=== PATIENT | female | born 1990 | race Caucasian/White ===

== ENCOUNTER 2017-11-09 21:11 | Emergency (ER) | payer MEDICAID, SELFPAY ==
[2017-11-09 21:12] VITALS: BP 119/79; PULSE 143; RESP 18; TEMP 37.3; O2SAT 93; BMI 23.8
--- NOTE | 2017-11-09 22:21 | ED.VISSUMM ---
- ER Visit Summary Date of Service: 11/09/17 Chief Complaint: [] Runny nose cough fever children with same History of Present Illness: The patient is a 26 F [] mother is here with 2 of her children all 3 of them today developed body aches fever and cough she brought her children one be checked she has no past history she indicates her's and daughter were sick earlier in the week with similar symptoms. She has no past history she is eating drinking without difficulty normal bowel bladder habits harsh cough runny nose no flu vaccination no other complaints, again she really came in so that her 2 children could get checked not herself Physical Examination: [] She is in no distress she has a runny nose and a cough her oral cavity is unremarkable her lungs are clear heart tones are about 110 which was 99 her neck is supple her lungs are clear heart tones are as above the abdomen soft nontender upper lower extremities unremarkable clinically she looks well except for the cough very minor now Test Results: [] Emergency Department Course and Treatment: [] Explained to the mother that this time this is likely related to influenza type illness as we are in the peak of that epidemic, we will be screening the children and there is really no reason to screen her she agrees she will be given an aerosol discharge with the same Motrin Tylenol for body ache follow-up family doctor Treatment Plan: [] Disposition: [] Stable Impression: [] URI with harsh cough influenza type illness This note was generated with [employer] dictation software. It may contain incorrect words, spelling, and punctuation that were not noted in review of the chart prior to signing ED Disposition - Plan for ED Patient: Chief Complaint: Cold Sx Referrals: Care Physician,No Primary [Primary Care Provider] -
--- NOTE | 2017-11-09 22:23 | ED.DEP ---
ED Disposition - Plan for ED Patient: Chief Complaint: Cold Sx Instructions: ED Flu Prescriptions: Albuterol Inhaler [Ventolin Hfa] 1 - 2 puff INHALATION Q4H PRN PRN #1 inhaler PRN Reason: Wheezing Referrals: Care Physician,No Primary [Primary Care Provider] - Tim Burroughs DO [STAFF PHYSICIAN] -
[2017-11-09] MEDS: Ipratropium/Albuterol Sulfate 3 ML AMPUL.NEB INHALATION (22:51)
[2017-11-09 22:55] VITALS: PULSE 136; RESP 14
[2017-11-10 00:08] VITALS: BP 132/70; PULSE 108; RESP 14; O2SAT 99
== END 2017-11-10 00:08 | disposition home or self-care (01) ==
PROVIDERS: Emergency Provider Emergency Medicine
DX: J11.1 Influenza due to unidentified influenza virus with other respiratory manifestations (principal)
CPT/HCPCS: 94640; 99282

== ENCOUNTER 2018-07-23 13:20 | Emergency (ER) | payer MEDICAID, SELFPAY ==
[2018-07-23 13:20] VITALS: BP 116/78; PULSE 86; RESP 14; TEMP 37.7; O2SAT 98; BMI 24.8
--- NOTE | 2018-07-23 16:17 | EKG12_ITS ---
Test Reason : HEADACHE Blood Pressure : / mmHG Vent. Rate : 076 BPM Atrial Rate : 076 BPM P-R Int : 144 ms QRS Dur : 080 ms QT Int : 376 ms P-R-T Axes : 057 075 061 degrees QTc Int : 423 ms Normal sinus rhythm Normal ECG Confirmed by TANJA MG, ANGELLA ([id number]), web content editor LEONA LO ([id number]) on 07/28/2018 3:41:51 PM Referred By: TRAY Confirmed By:ANGELLA AGRAWAL MD
--- NOTE | 2018-07-23 16:19 | CT_ITS ---
STUDY: CT BRAIN WITHOUT CONTRAST REASON FOR EXAM: Female, 27 years old. Headache x2 weeks. RADIATION DOSAGE (If Supplied By Facility): CTDIvol = ( 60.81 ) mGy, DLP = ( 1067.08 ) mGycm TECHNIQUE: Transaxial CT imaging of the brain was performed without administration of intravenous contrast material. Individualized dose optimization techniques were used for this CT. COMPARISON: 05/19/2015. FINDINGS: Normal soft tissue structures. Normal calvarium. Normal size ventricles and extra-axial spaces for the patient's age. Normal white matter tracts of the cerebral hemispheres. Normal basal ganglia and thalami. Normal brainstem. Normal cerebellum. There is no intracranial hemorrhage. There are no findings of an acute ischemic infarction. Normal visualized paranasal sinuses. CT/Brain/Head without Contrast IMPRESSION: Normal unenhanced CT scan of the brain. Electronically Signed: Alyssia Holloway MD at 17:40 EDT Tel , Service support ,
--- NOTE | 2018-07-23 16:19 | ED.VISSUMM ---
- ER Visit Summary Date of Service: 07/23/18 Chief Complaint: Headache History of Present Illness: The patient is a 27 F who presents for headaches for the last 2-1/2 weeks. Patient is having intermittent headaches that start behind her eyes and encompassing entire head, like a sharp achiness, and last approximately 1 hour. She has 2-3 episodes a day. She has associated nausea, blurred vision, bilateral ear pain with ringing, shakiness, tingling in her hands, and heart racing. Patient has also been having increased urination. Last menstrual period was 2 months ago. She did have a bilateral tubal ligation. Use her grandfathers blood glucose monitor and checked at one time, with glucose 84. She denies any medical history, including histories of headaches. She is not currently on any medications and is not had any medication changes within the last month. She smokes tobacco. She denies any drug use prior to the headache starting. Physical Examination: Vital signs: afebrile, hemodynamically stable, no hypoxia on room air General: well nourished, well developed, in no distress, sitting in bed with the lights on Skin: warm, dry, no rash, no pallor HEENT: normocephalic and atraumatic; PERRL, EOMI, no nystagmus, vision grossly normal, moist mucous membranes Cardiovascular: regular rate and rhythm without murmurs, no peripheral edema, 2+ pulses all distal extremities Respiratory: No increased work of breathing, lungs are clear to auscultation bilaterally, no rales, rhonchi or wheezing Abdominal: Abdomen is soft, nontender with normoactive bowel sounds, no guarding or rebound, no masses MSK: Moves all extremities, no deformities, normal strength Neuro: Awake and alert, oriented ?4. No facial droop, sensation and motor function intact and symmetric Test Results: E Abnormal Lab Results 07/23/18 07/23/18 07/23/18 16:45 16:45 16:45 WBC 8.4 RBC 4.56 Hgb 12.6 Hct 37.5 MCV 82.2 MCH 27.6 MCHC 33.6 RDW 13.0 RDW Differential 38.6 Plt Count 293 MPV 10.4 Immature Gran % (Auto) 0.100 Neut % (Auto) 60.1 Lymph % (Auto) 31.5 [place] % (Auto) 6.7 Eos % (Auto) 1.4 Baso % (Auto) 0.2 Absolute Neuts (auto) 5.0 Absolute Lymphs (auto) 2.63 Total Counted Not Reportable Sodium 137 Potassium 3.5 Chloride 106 Carbon Dioxide 27.0 Anion Gap 4 L BUN 10 Creatinine 0.77 Estim Creat Clear Calc 86.80 Est GFR (MDRD) Af Amer 115 Est GFR (MDRD) Non-Af 95 BUN/Creatinine Ratio 13.0 Glucose 87 Calcium 8.7 Total Bilirubin 1.50 H AST 15 ALT 32 Alkaline Phosphatase 84 Total Protein 7.9 Albumin 3.8 Globulin 4.1 Albumin/Globulin Ratio 0.9 TSH 0.74 Free T4 1.04 Urine Color Urine Clarity Urine pH Ur Specific Coleman Urine Protein Urine Glucose (UA) Urine Ketones Urine Occult Blood Urine Nitrite Urine Bilirubin Urine Urobilinogen Ur Leukocyte Esterase Urine RBC Urine WBC Ur Squamous Epith Cells Urine Bacteria Urine Mucus Urine Test Urine Opiates Screen Urine Methadone Screen Ur Barbiturates Screen Ur Phencyclidine Scrn Ur Amphetamines Screen U Methamphetamin-MDMA U Benzodiazepines Scrn Urine Cocaine Screen U Cannabinoids Screen Ur Drug Screen Comment Ethyl Alcohol < 3.0 07/23/18 07/23/18 07/23/18 16:45 16:45 16:45 WBC RBC Hgb Hct MCV MCH MCHC RDW RDW Differential Plt Count MPV Immature Gran % (Auto) Neut % (Auto) Lymph % (Auto) [place] % (Auto) Eos % (Auto) Baso % (Auto) Absolute Neuts (auto) Absolute Lymphs (auto) Total Counted Sodium Potassium Chloride Carbon Dioxide Anion Gap BUN Creatinine Estim Creat Clear Calc Est GFR (MDRD) Af Amer Est GFR (MDRD) Non-Af BUN/Creatinine Ratio Glucose Calcium Total Bilirubin AST ALT Alkaline Phosphatase Total Protein Albumin Globulin Albumin/Globulin Ratio TSH Free T4 Urine Color Yellow Urine Clarity Clear Urine pH 7.0 Ur Specific Coleman 1.005 Urine Protein Negative Urine Glucose (UA) Normal Urine Ketones Negative Urine Occult Blood Negative Urine Nitrite Negative Urine Bilirubin Negative Urine Urobilinogen Normal Ur Leukocyte Esterase Negative Urine RBC 0 SEEN Urine WBC 0 SEEN Ur Squamous Epith Cells 0-5 SEEN Urine Bacteria 0 SEEN Urine Mucus 0 SEEN Urine Test Negative Urine Opiates Screen NEGATIVE Urine Methadone Screen NEGATIVE Ur Barbiturates Screen NEGATIVE Ur Phencyclidine Scrn NEGATIVE Ur Amphetamines Screen NEGATIVE U Methamphetamin-MDMA NEGATIVE U Benzodiazepines Scrn NEGATIVE Urine Cocaine Screen NEGATIVE U Cannabinoids Screen NEGATIVE Ur Drug Screen Comment Ethyl Alcohol Clinical Impression(s) from Imaging Studies Brain CT 07/23/18 16:19 IMPRESSION: Normal unenhanced CT scan of the brain. Electronically Signed: Alyssia Holloway MD at 17:40 EDT Tel , Service support , Medications Given Discontinued Medications Sodium Chloride () 1,000 mls @ 1,000 mls/hr IV .Q1H ONE Stop: 07/23/18 17:16 Last Admin: 07/23/18 16:45 Dose: 1,000 mls/hr mergency Department Course and Treatment: Treatment Plan: Patient presents with a constellation of symptoms occurring with headaches that sound similar to an anxiety reaction, hyperventilation, possible thyroid dysfunction, electrolyte derangements, or other causes. Her headache is intermittent and sounds less likely to be a primary intracranial process. CT the head showed no acute process. Urine was negative for infection and negative. TSH and free T4 within normal limits. Tox and alcohol were normal. CBC and CMP were unremarkable. Patient was given IV fluids for hydration. Her physical examination was unremarkable, and she had no findings on her workup to explain her symptoms. No concerning findings on exam that would require admission for further workup. Patient is going to follow-up with a family doctor for further evaluation and management of these episodic headaches with other symptoms continue. Patient was given a prescription for hydroxyzine in case there is an anxiety component to her symptoms. We discussed that there could be other underlying metabolic or other physiologic abnormalities that are causing these episodes, but they are beyond the scope of what can be tested in the emergency department. Patient agreed with this plan was discharged home very well-appearing with no focal neuro deficits. Disposition: [] Impression: Cephalgia, intermittent This note was generated with [employer] dictation software. It may contain incorrect words, spelling, and punctuation that were not noted in review of the chart prior to signing ED Disposition - Plan for ED Patient: Disposition: Home or Assisted Living Chief Complaint: Headache Instructions: ED Cephalgia Unspecified Prescriptions: RX: Hydroxyzine HCl 50 mg PO TID PRN #20 tab PRN Reason: anxiousness Referrals: Care Physician,No Primary [Primary Care Provider] - Doctor,Your [STAFF PHYSICIAN] - As soon as possible Additional Instructions: Your workup did not show any concerning findings to explain your headaches and associated symptoms. Your lab work was fine, including blood counts, electrolytes, and thyroid function. Your head CT showed no concerning findings. Your EKG was normal. Please follow-up with your primary care doctor as soon as possible for further workup of your intermittent headaches with other symptoms. You may also benefit from an eye doctor appointment. You may use the hydroxyzine as needed to see if it helps with your symptoms associated with your headaches. If you have any worsening of your condition or any new concerning symptoms, please return immediately to the emergency department for another evaluation.
[2018-07-23] MEDS: 0.9% Normal Saline 1,000 ML 1000 ML IV (16:45)
[2018-07-23 16:54] VITALS: BP 102/78; BP 103/73; BP 109/77; PULSE 67; PULSE 74
[2018-07-23 17:04] LABS: Bacteria 0 SEEN /hpf (None Seen); Mucous, Urine 0 SEEN /hpf (<or=2+); Red Blood Cells-Urine 0 SEEN /hpf (0-5); White Blood Cells 0 SEEN /hpf (0-5)
[2018-07-23 17:06] LABS: Color, Urine Yellow (Yellow); Glucose, Dipstick Normal (Normal); Ketone-Dipstick Negative (Negative); Leukocyte Esterase-Dipstick Negative /ul (Negative); Nitrite-Dipstick Negative (Negative); Occult Blood-Urine Negative /ul (Negative); Protein-Dipstick Negative (Negative); Specific Gravity, Urine 1.005 (1.002-1.030); Urine Bilirubin Dipstick Negative (Negative); Urine Clarity Clear (Clear); Urine Urobilinogen Normal (Normal)
[2018-07-23 17:11] LABS: Internal QC Validated? YES +Cl - CLEAR BKGD; Pregnancy, Urine Negative Negative
[2018-07-23 17:14] LABS: Squamous Epithelial Cells - UA 0-5 SEEN /hpf (5-10)
[2018-07-23 17:21] LABS: Alcohol, Blood (Medical)-Serum < 3.0 mg/dL
[2018-07-23 17:32] LABS: ALB/GLOB Ratio 0.9 RATIO (0.9-2.4); AST(SGOT) 15 U/L (15-37); Alanine Aminotransfer ALT/SGPT 32 U/L (13-56); Albumin, Serum 3.8 g/dL (3.2-5.0); Alkaline Phosphatase 84 U/L (45-117); Anion Gap 4 (5-15); BUN 10 mg/dL (7-18); Calcium,Total 8.7 mg/dL (8.5-10.1); Chloride 106 mmol/L (98-107); Creatinine, Serum 0.77 mg/dL (0.55-1.02); EST Glomerular Filtration Rate 95 mL/min (>60); Est Glom Filt Rate - Afr Amer 115 mL/min (>60); Globulin 4.1 g/dL (2.2-4.2); Glucose 87 mg/dL (74-106); Potassium 3.5 mmol/L (3.5-5.1); Protein, Total 7.9 g/dL (6.4-8.2); Sodium Level 137 mmol/L (136-145); T4 Free Direct 1.04 ng/dL (0.76-1.46); Thyroid Stim Hormone (TSH) 0.74 uIU/mL (0.358-3.74)
[2018-07-23 17:36] LABS: Absolute Lymphocyte Count 2.63 X10^3/ul (0.83-4.51); Basophil# 0.02 X10^3/uL; Basophil% 0.2 % (0-1); Eosinophil# 0.12 X10^3/uL; Eosinophils% 1.4 % (0-5); Hematocrit 37.5 % (37-47); Hemoglobin 12.6 g/dl (12.0-15.0); Lymphocyte # 2.63 X10^3/ul (4.0); Lymphocyte % 31.5 % (19-41); Mean Corp Hgb Conc 33.6 g/gl (32-36); Mean Corpuscular Hgb 27.6 pg (27.0-32.0); Mean Corpuscular Volume 82.2 fL (81-99); Mean Platelet Vol. 10.4 fl (6.2-12.0); Monocyte# 0.56 X10^3/uL; Monocyte% 6.7 % (0-10); Neutrophil # 5.02 X10^3/uL (2.7-7.7); Neutrophil % 60.1 % (47-70); Platelet Count 293 K/mm3 (150-450); RBC Distribution Width SD 38.6 fl (35.1-43.9); Red Blood Count 4.56 M/mm3 (4.2-5.4); White Blood Count 8.4 K/mm3 (4.4-11.0)
[2018-07-23 17:41] LABS: POSITIVE COUNT NO; POSITIVE DIFFERENTIAL NO; POSITIVE MORPHOLOGY NO
[2018-07-23 17:56] LABS: Amphetamine Urine VISTA NEGATIVE (<1000 ng/mL); Barbiturate Urine VISTA NEGATIVE (< 200 ng/mL); Benzodiazepine Urine VISTA NEGATIVE (< 200 ng/mL); Cocaine Urine VISTA NEGATIVE (< 300 ng/mL); Ecstacy Urine VISTA NEGATIVE (< 500 ng/mL); Methadone Urine VISTA NEGATIVE (< 300 ng/mL); PCP Urine VISTA NEGATIVE (< 25 ng/mL); THC Urine VISTA NEGATIVE (< 50 ng/mL); Vista UDS pH Range 6
--- NOTE | 2018-07-23 18:26 | ED.DEP ---
ED Disposition - Plan for ED Patient: Disposition: Home or Assisted Living Chief Complaint: Headache Instructions: ED Cephalgia Unspecified Prescriptions: Hydroxyzine HCl 50 mg PO TID PRN #20 tab PRN Reason: anxiousness Referrals: Care Physician,No Primary [Primary Care Provider] - Doctor,Your [STAFF PHYSICIAN] - As soon as possible Additional Instructions: Your workup did not show any concerning findings to explain your headaches and associated symptoms. Your lab work was fine, including blood counts, electrolytes, and thyroid function. Your head CT showed no concerning findings. Your EKG was normal. Please follow-up with your primary care doctor as soon as possible for further workup of your intermittent headaches with other symptoms. You may also benefit from an eye doctor appointment. You may use the hydroxyzine as needed to see if it helps with your symptoms associated with your headaches. If you have any worsening of your condition or any new concerning symptoms, please return immediately to the emergency department for another evaluation.
[2018-07-23 18:54] VITALS: PULSE 88; RESP 16
== END 2018-07-23 18:54 | disposition home or self-care (01) ==
PROVIDERS: Emergency Provider Emergency Medicine
DX: R51 Headache (principal); H92.03 Otalgia, bilateral; F17.210 Nicotine dependence, cigarettes, uncomplicated
CPT/HCPCS: 70450; 80053; 80307; 80320; 81001; 81025; 84439; 84443; 85025; 93005; 96360; 99284; J7030; G0480

== ENCOUNTER 2020-04-19 02:04 | Emergency (ER) | payer MEDICAID, SELFPAY ==
[2020-04-19 02:05] VITALS: BP 128/93; PULSE 105; RESP 16; TEMP 36.6; O2SAT 100; BMI 24.6
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
[2020-04-19 04:09] VITALS: BP 106/75; PULSE 89; RESP 18; O2SAT 95
== END 2020-04-19 04:10 | disposition home or self-care (01) ==
PROVIDERS: Emergency Provider Emergency Medicine
DX: S61.212A Laceration without foreign body of right middle finger without damage to nail, initial encounter (principal); M62.838 Other muscle spasm; Y04.0XXA Assault by unarmed brawl or fight, initial encounter; Y93.11 Activity, swimming; Y92.89 Other specified places as the place of occurrence of the external cause; Y99.9 Unspecified external cause status; F17.200 Nicotine dependence, unspecified, uncomplicated
CPT/HCPCS: 12001; 70160; 72040; 99284

== ENCOUNTER 2025-05-01 20:21 | Emergency (ER) | payer MEDICAID, SELFPAY ==
[2025-05-01 20:22] VITALS: BP 119/85; PULSE 105; RESP 20; TEMP 37.5; O2SAT 98; BMI 24.5
[2025-05-01 20:24] VITALS: BP 119/85; PULSE 105; RESP 22; TEMP 37.5; O2SAT 98
--- OUTSIDE RECORDS SUMMARY | 2025-05-01 20:46 | XMS RPT_ITS | CCD ---
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 In more severe cases, topical corticosteroids (steroids) may be recommended. Steroid creams and ointments are available in a variety of strengths (potencies); the least potent are available in the [place] without a prescription (eg, hydrocortisone 1 percent cream). More potent formulations require a prescription. Steroid treatments for contact dermatitis are most effective when applied and covered with a barrier, such as plastic wrap, a dressing (eg, Telfa), cotton gloves, or petroleum jelly. Oral steroids (eg, prednisone) may be used briefly to treat severe dermatitis, but are not recommended for long-term treatment of irritant contact dermatitis. ALLERGIC CONTACT DERMATITIS Allergic contact dermatitis occurs when the skin comes in direct contact with an allergen. This activates the body's immune system, which triggers inflammation. Allergic contact dermatitis can occur after being exposed to a new product or after using a product for months or years. Common allergens -- Poison niya, poison oak, and poison sumac contain an oil called urushiol, which is the most common cause of allergic contact dermatitis. Ginkgo fruit and the skin of mangos also contain urushiol and can cause allergic contact dermatitis. Other common allergens include nickel in jewelry, perfumes and cosmetics, components of rubber, nail nauruan, and chemicals in shoes (both leather and synthetic). Allergic contact dermatitis can also be triggered by certain medications, including hydrocortisone cream, antibiotic creams (eg, Neosporin , Bacitracin ), benzocaine, and thimerosal. Laundry detergents are an uncommon cause of allergic contact dermatitis. Symptoms -- Symptoms include intense itching and a red raised rash. The rash is usually limited to areas that were in direct contact with the allergen, but a rash can appear in other areas of the body, if the allergen was transferred to those areas on a person's hands. Washing the allergen away with soap and water can usually prevent this spread. The rash typically appears within 12 to 48 hours of exposure to the allergen, although in some cases it may not appear for up to two weeks. Less commonly, the rash persists for months or years, which makes it difficult to identify the cause of the reaction. Diagnosis -- The diagnosis of allergic contact dermatitis is based upon a person's history and physical examination. If symptoms improve after the allergen is eliminated, this supports the diagnosis. Patch testing may be recommended in some cases and is usually performed by a carton inspector or cryptographic center specialist. Treatment -- Allergic contact dermatitis usually resolves within two to four weeks after the allergen is eliminated, although it can take more time in some cases. Several measures can minimize symptoms during this time and help to control symptoms in people who have chronic allergic contact dermatitis. Whenever possible, identify and stop all exposure to the allergen. Oatmeal baths or soothing lotions such as calamine lotion can provide relief in mild cases. Topical antihistamines (eg, Benadryl cream) may be effective in some people. Topical corticosteroids (steroids) may be recommended for people with mild to moderate symptoms. Steroid creams and ointments are available in a variety of strengths (potencies); the least potent are available in the [place] without a prescription (eg, hydrocortisone 1 percent cream). More potent formulations require a prescription. For people with more bothersome symptoms, wet or damp dressings are recommended, especially when the affected area is oozing fluid and crusting. Such dressings are soothing and relieve itching, reduce redness, gently remove crusts, and prevent additional injury from scratching. A damp cotton garment (the garment is soaked with water and then wrung out) is worn over the affected area and covered with a dry garment. As an example, for an adult with allergic contact dermatitis of the legs, wet long underwear can be covered with larger dry long underwear. Adults may prefer to apply wet dressings at night. When used during the day, wet dressings should be changed every eight hours. Infants and toddlers with extensive skin involvement can wear wet pajamas covered by a dry pair of pajamas or a sleep sack. In people with severe dermatitis, a short course of oral steroids (eg, prednisone) may be recommended to get symptoms under control. LATEX DERMATITIS Latex is a fluid produced by rubber trees that is processed into a variety of products, including gloves, balloons, and condoms. In some individuals, exposure to these products and others (such as rubber bands, erasers, feeding nipples, pacifiers) can cause a contact dermatitis that is either an irritant or allergic reaction. Less commonly, a person can develop a potentially life-threatening allergic reaction to latex. Irritant dermatitis -- Irritant dermatitis usually occurs on the hands of people who wear latex or other rubber gloves; the latex acts as an irritant and the gloves trap moisture against the skin. The skin dries out when the gloves are removed, leading to the dermatitis. The symptoms of irritant rubber or latex dermatitis include redness and itching on the skin. There may also be dryness and cracking. Symptoms usually occur within 12 to 36 hours of touching a latex product. Treatment involves avoiding use of any latex-containing products. Latex allergy -- Latex can trigger allergic contact dermatitis. The skin reaction caused by a latex allergy does not differ significantly from that of irritant latex dermatitis. Other manifestations of latex allergy include urticaria (hives) immediately after contact with latex at the site of contact and a severe allergic reaction, which causes swelling, sneezing, and wheezing. Rarely, anaphylaxis can occur, which causes life-threatening difficulty with breathing. Diagnosis -- In most cases, the diagnosis of latex allergy is based upon a person's history of exposure. People with a severe latex allergy may immediately develop hives, nasal symptoms, swelling, or wheezing after latex exposure. These individuals may need to see a carton inspector or cryptographic center specialist for specialized skin patch tests and blood testing to verify the latex allergy. Treatment -- The primary treatment for latex allergy is to avoid all latex-containing products. Non-latex examination gloves are widely available, and use of glove liners may also be an effective approach. Natural membrane (sometimes called sheep skin) condoms may be used in place of latex condoms, and are effective for preventing . However, natural membrane condoms do not protect against sexually transmitted diseases such as HIV, gonorrhea, and chlamydia. People with a serious latex allergy should wear a bracelet, necklace, or similar alert tag at all times. If a reaction occurs and the person is too ill to explain their condition, this will help responders provide the proper care as quickly as possible. This measure is especially important in children. The alert tag should include a list of known allergies, as well as the name and phone number of an emergency contact. People with a latex allergy should inform their doctors, dentists, and other healthcare providers about their allergy. Some patients are advised to carry an anaphylaxis kit (containing epinephrine that can be injected under the skin) as a precautionary measure. documented in this encounter [facility] 03-25-2025 Note HNO ID: [id number] Author: LOLITA GOOD APRN.DOUG Service: ? Author Type: Nurse Practitioner Type: Progress Notes Filed: 03/25/2025 18:08 Note Text: Telemedicine Visit - Distance Health Virtual Visit Note Patient seen on [employer] Video Visit platform. Location of patient: [place] I have communicated my name and active licensure. The patient's identity and physical location were verified at the time of this visit. Either the patient or their legal indirect sales representative has been informed of the risks and benefits of -- and alternatives to -- treatment through a remote evaluation and consents to proceed with the evaluation remotely. History of Present Illness Denise Markham is a 34 year old female presenting with a rash. History was obtained from: patient The rash is located bilateral arms, bilateral thighs, bilateral hands for the past 2 week(s) and is not improving. The rash is described as itchy. The prior dermatologic history includes similar rash in past. The patient reports recent yard work and contact with plants. Complains of no other pertinent symptoms. Denies fever, shortness of breath, chest pain, abdominal pain. OTC meds/remedies that patient has tried Niya Dry, Benadryl, Calamine lotion - temporary relief; Patient denies current or . PAST MEDICAL HISTORY Diagnosis Date Dysthymic disorder Depression (non-psychotic) PAST SURGICAL HISTORY Procedure Laterality Date PAST SURGICAL HISTORY OF stitches in forehead TUBAL LIGATION FAMILY HISTORY Problem Relation Age of Onset Arthritis Maternal Grandmother Diabetes Maternal Grandmother Diabetes Paternal Grandmother Hypertension Paternal Grandmother Hypertension Paternal Grandfather Alcohol/Drug Paternal Grandfather Cancer Maternal Uncle LUNG CANCER Social History Tobacco Use Smoking status: Some Days Current packs/day: 0.00 Types: Cigarettes Start date: 11/23/2005 Last attempt to quit: 11/23/2010 Years since quittin.3 Smokeless tobacco: Never Substance Use Topics Alcohol use: Yes Comment: Occasionally Drug use: No ALLERGIES Allergen Reactions Bupropion Hcl Hives Peanuts Rash Tree Nuts Rash Wellbutrin [Bupropi* Hives FLUoxetine (PROZAC) 10 mg capsule Take 1 capsule by mouth once daily. hydrOXYzine pamoate (VISTARIL) 25 mg capsule Take 1 capsule by mouth three times a day as needed. Video Exam (Examination performed via Video enabled technology) General appearance: Alert, oriented, pleasant, in NAD: Yes Ill appearing: No Lethargic appearing: No Respiratory distress: No Skin: linear streaks of erythematous papules noted to bilateral anterior and posterior thighs; no drainage or streaking; Patient reports same rash to bilateral arms (due to poor video quality, not visualized); ASSESSMENT/PLAN: 1. Allergic contact dermatitis due to plants, except food - ICD9: 692.6, ICD10: L23.7 - Begin treatment with oral steroids - prednisone taper (advised on side effects of hunger and insomnia) - Triamcinolone ointment as directed -?Discussed skin care of rash?- keep clean and dry, avoid scratching - Recommend patient seek immediate medical evaluation if any worsening redness, swelling, fevers, streaking from area, additional symptoms -?Follow up?with PCP (or available in-person care) in 1 week?if symptoms persist or?sooner if symptoms?worsen - Red flags discussed for immediate in person care - All questions answered Lolita Good APRN.CHUCKING MACHINE SET UP OPERATOR TOOL Differential Diagnoses - contact dermatitis is more likely for the following reason(s): suggested by HANDP Disposition The patient was other (comment) (Zoom visit ended). [facility] 03-25-2025 History of Presen t illness Narrative Telemedicine Visit - Distance Health Virtual Visit Note Patient seen on [employer] Zoom Video Visit platform. Location of patient: [place] I have communicated my name and active licensure. The patient's identity and physical location were verified at the time of this visit. Either the patient or their legal indirect sales representative has been informed of the risks and benefits of -- and alternatives to -- treatment through a remote evaluation and consents to proceed with the evaluation remotely. History of Present Illness Denise Markham is a 34 year old female presenting with a rash. History was obtained from: patient The rash is located bilateral arms, bilateral thighs, bilateral hands for the past 2 week(s) and is not improving. The rash is described as itchy. The prior dermatologic history includes similar rash in past. The patient reports recent yard work and contact with plants. Complains of no other pertinent symptoms. Denies fever, shortness of breath, chest pain, abdominal pain. OTC meds/remedies that patient has tried Niya Dry, Benadryl, Calamine lotion - temporary relief; Patient denies current or . PAST MEDICAL HISTORY Diagnosis Date Dysthymic disorder Depression (non-psychotic) PAST SURGICAL HISTORY Procedure Laterality Date PAST SURGICAL HISTORY OF stitches in forehead TUBAL LIGATION FAMILY HISTORY Problem Relation Age of Onset Arthritis Maternal Grandmother Diabetes Maternal Grandmother Diabetes Paternal Grandmother Hypertension Paternal Grandmother Hypertension Paternal Grandfather Alcohol/Drug Paternal Grandfather Cancer Maternal Uncle LUNG CANCER Social History Tobacco Use Smoking status: Some Days Current packs/day: 0.00 Types: Cigarettes Start date: 11/23/2005 Last attempt to quit: 11/23/2010 Years since quittin.3 Smokeless tobacco: Never Substance Use Topics Alcohol use: Yes Comment: Occasionally Drug use: No ALLERGIES Allergen Reactions Bupropion Hcl Hives Peanuts Rash Tree Nuts Rash Wellbutrin [Bupropi* Hives FLUoxetine (PROZAC) 10 mg capsule Take 1 capsule by mouth once daily. hydrOXYzine pamoate (VISTARIL) 25 mg capsule Take 1 capsule by mouth three times a day as needed. Video Exam (Examination performed via Video enabled technology) General appearance: Alert, oriented, pleasant, in NAD: Yes Ill appearing: No Lethargic appearing: No Respiratory distress: No Skin: linear streaks of erythematous papules noted to bilateral anterior and posterior thighs; no drainage or streaking; Patient reports same rash to bilateral arms (due to poor video quality, not visualized); ASSESSMENT/PLAN: 1. Allergic contact dermatitis due to plants, except food - ICD9: 692.6, ICD10: L23.7 - Begin treatment with oral steroids - prednisone taper (advised on side effects of hunger and insomnia) - Triamcinolone ointment as directed -?Discussed skin care of rash?- keep clean and dry, avoid scratching - Recommend patient seek immediate medical evaluation if any worsening redness, swelling, fevers, streaking from area, additional symptoms -?Follow up?with PCP (or available in-person care) in 1 week?if symptoms persist or?sooner if symptoms?worsen - Red flags discussed for immediate in person care - All questions answered Lolita Good APRN.CNP Differential Diagnoses - contact dermatitis is more likely for the following reason(s): suggested by H&P Disposition The patient was other (comment) (Zoom visit ended). documented in this encounter [facility] 01-25-2025 Alva Boogie APRN.CNP - 01/25/2025 1:25 PM EDT Steve [facility] - [facility] [address] [place] [address] [facility] [address] [place] [address] [facility] [address] [place], [place] [address] [facility] [address] [place], [place] [id number] [facility] [place], [address] documented in this encounter [facility] 01-25-2025 Note HNO ID: [id number] Author: ALVA MANLEY APRN.DOUG Service: ? Author Type: Nurse Practitioner Type: Progress Notes Filed: 01/26/2025 17:19 Note Text: VIRTUAL PRIMARY CARE Patient seen on [employer] Video Visit platform. I have communicated my name and active licensure. The patient's identity and physical location were verified at the time of this visit. Either the patient or their legal indirect sales representative has been informed of the risks and benefits of -- and alternatives to -- treatment through a remote evaluation and consents to proceed with the evaluation remotely. Assessment AND Plan Mixed anxiety depressive disorder - Symptoms of anxiety and depression have worsened over the past few months, with recent onset of panic attacks characterized by tachycardia, dyspnea, and emotional dysregulation. - Completed AMPARO-7 and PHQ-9 assessments; AMPARO-7 indicates severe anxiety with daily symptoms, PHQ-9 indicates severe depression with daily symptoms including hypersomnia, fatigue, poor appetite, and thoughts of self-harm. - Discussed treatment options including SSRIs and non-controlled anxiolytics. - Start fluoxetine 10 mg - Hydroxyzine PRN for acute anxiety - BH resources provided in AVS. - Follow-up 4 weeks for med reassessment with me or psychiatry if established Orders: FLUoxetine (PROZAC) 10 mg capsule; Take 1 capsule by mouth once daily. hydrOXYzine pamoate (VISTARIL) 25 mg capsule; Take 1 capsule by mouth three times a day as needed. Encounter to establish care with new doctor - [facility]: Appointment line [phone], Internal Medicine desk [phone] Orders: ESTABLISH WITH PRIMARY CARE - NEW PATIENT; Future She is agreeable with plan of care. Alva Manley APRN.CHUCKING MACHINE SET UP OPERATOR TOOL CC: Denise is a 34-year-old female with a history of depression, presenting for worsening anxiety and new onset panic attacks. SUBJECTIVE: History of post- depression. Anxiety more of an issue. Anxiety in the last couple of months. Panic attacks in the last 2-3 weeks, no clear trigger. She is overwhelmed and stressed but nothing traumatic or changes. Heart racing, can't breath, irritable. Has four kids. 8, 12, 13 and 15. Medications in the past: - tried depression medication. - Hives with Wellbutrin, several years ago. No other medications. Self-employed as a house and commercial painter. All other ROS negative. Chart Review: problem list, medical/surgical/family/social history, medications, and allergies OBJECTIVE: Constitutional: General: No acute distress. Appearance: Well-developed. HENT: Head: Normocephalic. Eyes: Conjunctiva/sclera: Conjunctivae normal. Pulmonary: Effort: Pulmonary effort is normal. No respiratory distress. Skin: Coloration: Skin is not pale. Findings: No erythema or rash. Neurological: Mental Status: Alert [facility] 01-25-2025 History of Presen t illness Narrative VIRTUAL PRIMARY CARE Patient seen on [employer] Video Visit platform. I have communicated my name and active licensure. The patient's identity and physical location were verified at the time of this visit. Either the patient or their legal indirect sales representative has been informed of the risks and benefits of -- and alternatives to -- treatment through a remote evaluation and consents to proceed with the evaluation remotely. Assessment & Plan Mixed anxiety depressive disorder - Symptoms of anxiety and depression have worsened over the past few months, with recent onset of panic attacks characterized by tachycardia, dyspnea, and emotional dysregulation. - Completed AMPARO-7 and PHQ-9 assessments; AMPARO-7 indicates severe anxiety with daily symptoms, PHQ-9 indicates severe depression with daily symptoms including hypersomnia, fatigue, poor appetite, and thoughts of self-harm. - Discussed treatment options including SSRIs and non-controlled anxiolytics. - Start fluoxetine 10 mg - Hydroxyzine PRN for acute anxiety - resources provided in AVS. - Follow-up 4 weeks for med reassessment with me or psychiatry if established Orders: FLUoxetine (PROZAC) 10 mg capsule; Take 1 capsule by mouth once daily. hydrOXYzine pamoate (VISTARIL) 25 mg capsule; Take 1 capsule by mouth three times a day as needed. Encounter to establish care with new doctor - Provided [facility] information for [facility]: Appointment line [phone], Internal Medicine desk [phone] Orders: ESTABLISH WITH PRIMARY CARE - NEW PATIENT; Future She is agreeable with plan of care. Alva Manley APRN.CHUCKING MACHINE SET UP OPERATOR TOOL CC: Denise is a 34-year-old female with a history of depression, presenting for worsening anxiety and new onset panic attacks. SUBJECTIVE: History of post- depression. Anxiety more of an issue. Anxiety in the last couple of months. Panic attacks in the last 2-3 weeks, no clear trigger. She is overwhelmed and stressed but nothing traumatic or changes. Heart racing, can't breath, irritable. Has four kids. 8, 12, 13 and 15. Medications in the past: - tried depression medication. - Hives with Wellbutrin, several years ago. No other medications. Self-employed as a house and commercial painter. All other ROS negative. Chart Review: problem list, medical/surgical/family/social history, medications, and allergies OBJECTIVE: Constitutional: General: No acute distress. Appearance: Well-developed. HENT: Head: Normocephalic. Eyes: Conjunctiva/sclera: Conjunctivae normal. Pulmonary: Effort: Pulmonary effort is normal. No respiratory distress. Skin: Coloration: Skin is not pale. Findings: No erythema or rash. Neurological: Mental Status: Alert documented in this encounter [facility] 01-22-2025 Telephone encounter Note Pt scheduled 01/27/25 w/CHUCKING MACHINE SET UP OPERATOR TOOL thru MyChart [facility] 01-22-2025 Miscellaneous Notes Pt scheduled 01/27/25 w/CHUCKING MACHINE SET UP OPERATOR TOOL thru MyChart Electronically signed by [facility] Patient Chair Mender, Rosalee at 01/22/2025 8:15 AM EDT documented in this encounter [facility] 01-30-2024 History of Presen t illness Narrative Images from the original note were not included. Subjective Shoulder Injury Pertinent negatives include no tingling. Denise Markham is a 33 year old female who presents with left shoulder pain since last night. She denies any injury. She cleans houses, last night was sitting on the couch and when she went to get up felt sharp pain in left shoulder. Rates pain 10/10. She took ibuprofen. Describes pain as aching and dull at rest, sharp with any shoulder or arm movement. Review of Systems Constitutional: Negative for chills and fever. Musculoskeletal: Positive for joint pain. Negative for falls, myalgias and neck pain. Skin: Negative for itching and rash. Neurological: Negative for tingling, sensory change, focal weakness and weakness. BP 132/70 Pulse 70 Temp 36.8 C (98.2 F) Resp 16 Wt 57 kg (125 lb 10.6 oz) LMP 09/01/2022 SpO2 99% BMI 23.74 kg/m PAST MEDICAL HISTORY Diagnosis Date Dysthymic disorder Depression (non-psychotic) PAST SURGICAL HISTORY Procedure Laterality Date PAST SURGICAL HISTORY OF stitches in forehead TUBAL LIGATION ALLERGIES Bupropion Hcl, Peanuts, Tree Nuts, and Wellbutrin [Bupropion] MEDICATIONS predniSONE (DELTASONE) 20 mg tablet Take 2 tablets by mouth once daily for 4 days. Take daily with food. ibuprofen (MOTRIN) 600 mg tablet Take 1 tablet by mouth every 6 hours as needed for Pain. (Patient not taking: Reported on 11/20/2023) cetirizine (ZYRTEC) 10 mg tablet Take 1 tablet by mouth once daily. (Patient not taking: Reported on 11/20/2023) hydrOXYzine HCl (ATARAX) 25 mg tablet Take 1 tablet by mouth daily at bedtime. (Patient not taking: Reported on 11/20/2023) hydrOXYzine pamoate (VISTARIL) 25 mg capsule Take 1 capsule by mouth three times daily as needed. (Patient not taking: Reported on 11/20/2023) FAMILY HISTORY Problem Relation Age of Onset Arthritis Maternal Grandmother Diabetes Maternal Grandmother Diabetes Paternal Grandmother Hypertension Paternal Grandmother Hypertension Paternal Grandfather Alcohol/Drug Paternal Grandfather Cancer Maternal Uncle LUNG CANCER Social History Tobacco Use Smoking status: Some Days Years: 5 Types: Cigarettes Last attempt to quit: 11/23/2010 Years since quittin.1 Smokeless tobacco: Never Substance Use Topics Alcohol use: Yes Comment: Occasionally Drug use: No Objective Physical Exam Vitals and nursing note reviewed. Constitutional: Appearance: Normal appearance. Cardiovascular: Rate and Rhythm: Normal rate. Pulmonary: Effort: Pulmonary effort is normal. Musculoskeletal: General: Tenderness present. No swelling, deformity or signs of injury. Left shoulder: Tenderness present. No swelling, deformity, bony tenderness or crepitus. Decreased range of motion. Normal strength. Normal pulse. Arms: Skin: General: Skin is warm and dry. Findings: No bruising, erythema or rash. Neurological: Mental Status: She is alert and oriented to person, place, and time. Motor: Motor function is intact. No weakness or tremor. ASSESSMENT/PLAN: 1. Acute pain of left shoulder - ICD9: 719.41, ICD10: M25.512 (primary diagnosis) - no injury 2. Acute bursitis of left shoulder - ICD9: 726.10, ICD10: M75.52 - PREDNISONE 20 MG TABLET - Rest, ice application 2-3 times daily. - Follow-up with your PCP in 3-5 days if symptoms have not improved or sooner if symptoms worsen - Discussed red flags and need for immediate medical evaluation if any occur. - Discussed supportive care treatment with rest and analgesia. - Discussed expected course of illness Sugey Peterson APRN.DOUG documented in this encounter [facility] 01-30-2024 Instructions Sugey Peterson APRN.DOUG - 01/30/2024 9:21 AM EDT ASSESSMENT/PLAN: 1. Acute pain of left shoulder - ICD9: 719.41, ICD10: M25.512 (primary diagnosis) - no injury 2. Acute bursitis of left shoulder - ICD9: 726.10, ICD10: M75.52 - PREDNISONE 20 MG TABLET - Rest, ice application 2-3 times daily. - Follow-up with your PCP in 3-5 days if symptoms have not improved or sooner if symptoms worsen - Discussed red flags and need for immediate medical evaluation if any occur. - Discussed supportive care treatment with rest and analgesia. - Discussed expected course of illness Sugey Peterson APRN.CHUCKING MACHINE SET UP OPERATOR TOOL Bursitis What is bursitis? Bursitis is the inflammation or irritation of the bursa. The bursa is a small sac filled with lubricating fluid, located between tissues such as bone, muscle, tendons, and skin. Bursae help to decrease friction, rubbing and irritation and help your joints move with ease. There are more than 150 bursae in your body. Bursitis occurs when a bursa becomes inflamed; this results in pain and discomfort. The pain may be gradual (building up over time) or may be sudden and severe (especially if calcium deposits are present). What causes bursitis? Bursitis is most often caused by repetitive motions (ie, overuse); or direct, minor impact on the area (such as from such activities as repeated bumping or prolonged pressure from kneeling). Less often, bursitis is caused from a sudden, more serious injury. Other examples of the sources of bursitis include one or more of the following: Play or work activities that cause overuse or injury to the joint areas, for example: Gardening Raking Carpentry Shoveling Painting Scrubbing Sports (tennis, golf, throwing and pitching, etc.) Incorrect posture injury Stress on the soft tissues from an abnormal or poorly positioned joint or bone (such as leg length differences or arthritis in a joint) Other diseases or conditions (rheumatoid arthritis, gout, psoriasis, thyroid disease or an unusual drug reaction) and rarely, from infection Many times, the cause of bursitis is unknown. Where does bursitis occur? Bursae are located throughout the body. However, certain joints are more subject to increased pressure and repetitive use, making bursitis more likely to develop in them. These joints include the shoulders, elbows, knees, and feet. Bursae near the hip joint, particularly those on the outer side of the hip, and those in the buttocks (subjected to pressure from sitting) are also prone to bursitis. How is bursitis treated? Treatment goals include reduction in pain and inflammation, as well as preserving mobility and preventing disability and recurrence. Treatment recommendations may include a combination of rest, splints, heat and cold application. More advanced treatment options include: Nonsteroidal anti-inflammatory drugs, such as ibuprofen or naproxen Corticosteroid injections given by your health care provider. Injections work quickly to decrease the inflammation and pain. Physical therapy that includes range of motion exercises and splinting. This can be very beneficial. Surgery, when other treatments are not effective. When should you seek medical advice? Most cases of bursitis improve without any treatment over a few weeks. See your health care provider if you have any of the following signs or symptoms: You experience pain that interferes with your normal day-to-day activities or have soreness that doesn't improve despite self-care measures. You have recurrence of bursitis. You have a fever or the area affected appears red, swollen or warm. In addition, see your doctor if you have other medical conditions that may increase your risk of an infection, or if you take medications that increase your risk of infection, such as corticosteroids or immunosuppressants. How can you prevent bursitis? Because most cases of bursitis are caused by overuse, the best treatment is prevention. It is important to avoid or modify the activities that cause the problem. Underlying conditions such as leg length differences, improper posture or poor technique in sports or work must be corrected. Some positions, such as kneeling and sitting, significantly increase joint pressure. Apply these basic rules when performing activities: Take it slow at first and gradually build up your activity level. Use limited force and limited repetitions. Stop if unusual pain occurs. Use cushions and pads to reduce pressure. References [employer]. Tendinitis and Bursitis Accessed 08/17/2014. [employer] [place] [employer]. Bursitis and tendinitis Accessed 08/17/2014. Anshul PADRON. Chapter 281. Acute Disorders of the Joints and Bursae. In: Sindi BALTAZAR, Becca J, Bebe O, Chanel DM, Sissy RK, Toya HORVATH, T. eds. [employer] Emergency Medicine: A Comprehensive Study Guide, 7e. [place], [place]: [facility]; 2011. documented in this encounter [facility] 11-20-2023 Instructions Sugey Peterson APRN.CHUCKING MACHINE SET UP OPERATOR TOOL - 11/20/2023 1:42 PM EST ASSESSMENT/PLAN: 1. Bacterial conjunctivitis - ICD9: 372.39, 041.9, ICD10: H10.9 - see medication orders - course and contagiousness issues discussed, including hand washing. - Instructed to call if high fever, development of periorbital redness or swelling, eye pain, visual changes, concerns or if symptoms persist. - Told pt to follow up with ophthalmology if not improving in 24 hours. - POLYMYXIN B SULFATE 10,000 UNIT-TRIMETHOPRIM 1 MG/ML EYE DROPS to left eye- 4 drops a day for 7 days SUSY Mehta TEACHING PROVIDER (Physician/PA/NEMATOLOGIST) NOTE OF PERSONAL INVOLVEMENT IN CARE: I have personally seen and examined the patient and performed the medical decision-making components. I have reviewed the Advanced Practice Registered Nurse (NEMATOLOGIST) Student's documentation and verified the findings in the note as written. Any additions or changes are noted in bold/italics. Signature: Sugey Peterson Date: 11/20/2023 Time: 1:58 PM [facility] PATIENT INFO CONJUNCTIVITIS OVERVIEW Conjunctivitis, also called pinkeye, is defined as an inflammation of the conjunctiva. The conjunctiva is the thin membrane that lines the inner surface of the eyelids and the whites of the eyes (called the sclera). Conjunctivitis can affect children and adults. The most common symptoms of conjunctivitis include a red eye and discharge. There are many potential causes of conjunctivitis, including bacterial or viral infections, allergies, or a non-specific condition (eg, a foreign body in the eye). All types of conjunctivitis cause a red eye, although not everyone with a red eye has conjunctivitis. TYPES OF CONJUNCTIVITIS There are four main types of conjunctivitis: bacterial, viral, allergic, and non-specific. Most cases of infectious conjunctivitis are viral in adults and children; however, bacterial conjunctivitis is more common in children than in adults. Viral conjunctivitis -- Viral conjunctivitis is typically caused by a virus that can also cause the common cold. A person may have symptoms of conjunctivitis alone, or as part of a general cold syndrome, with swollen lymph nodes (glands), fever, a sore throat, and runny nose. Viral conjunctivitis is highly contagious. It is spread by contact, usually with objects which have come into contact with the infected person's eye secretions. As examples, the virus can be transmitted when an infected person touches their eye and then touches another surface (eg, door handle) or shares an object that has touched their eye (eg, a towel or pillow case). The most common symptoms of viral conjunctivitis include redness, watery or mucus discharge, and a burning, armand, or gritty feeling in one eye. Some people have morning crusting followed by watery discharge, perhaps with some scant mucus discharge throughout the day. The second eye usually becomes infected within 24 to 48 hours. There is no cure for viral conjunctivitis. Recovery can begin within days, although the symptoms frequently get worse for the first three to five days, with gradual improvement over the following one to two weeks for a total course of two to three weeks. Some people experience morning crusting that continues for up to two weeks after the initial symptoms, although the daytime redness, irritation, and tearing should be much improved. Bacterial conjunctivitis -- Bacterial conjunctivitis is highly contagious, often affecting multiple family members or children within a classroom. Bacterial conjunctivitis is spread by contact, usually with objects which have come into contact with the infected person's eye secretions. As examples, the virus can be transmitted when an infected person touches their eye and then touches another surface (eg, door handle) or shares an object that has touched their eye (eg, a towel or pillow case). The most common symptoms of bacterial conjunctivitis include redness and thick discharge from one eye, although both eyes can become infected. The discharge may be yellow, white, or green, and it usually continues to drain throughout the day. The affected eye often is stuck shut in the morning. Most types of bacterial conjunctivitis resolve quickly and cause no permanent damage when treated with antibiotic eye drops or ointment Non-specific conjunctivitis -- It is possible to develop a red eye and discharge that is not caused by an infection or allergy. The most common causes include one of the following. People with a dry eye may have chronic or intermittent redness or discharge. A person whose eyes are irrigated after a chemical splash may have redness and discharge. A person with a foreign body (eg, dust, eyelash) in the eye may have redness and discharge for 12 to 24 hours after the object is removed. All of these problems generally improve spontaneously within 24 hours. CONJUNCTIVITIS TREATMENT The treatment of conjunctivitis depends upon the cause. For this reason, it is important to have the correct diagnosis before treatment begins. Viral conjunctivitis treatment -- A topical antihistamine/decongestant eye drop may help to relieve the itching and irritation of viral conjunctivitis. These drops are available without a prescription in most pharmacies. However, particular care must be taken to avoid spreading viral infections from one eye to the other -- apply drops only to affected eye and wash hands thoroughly after application. Similar to cold medicines, this treatment may reduce the symptoms but does not shorten the course of the infection. Another option is to use warm or cool compresses, as needed. The irritation and discharge may get worse for three to five days before getting better, and symptoms can persist for two to three weeks. Bacterial conjunctivitis treatment -- Bacterial conjunctivitis is usually treated with an antibiotic eye drop or ointment. When started early, treatment helps to shorten the duration of symptoms, although most cases do resolve spontaneously if no treatment is used. Adults -- Adults are usually treated with an antibiotic eye drop or ointment for five to seven days. Redness, irritation, and eye discharge should begin to improve within 24 to 48 hours. If there is no improvement or if the condition worsens within this time, the person should be evaluated by an machine printer. Contact lens wearers -- People who wear contact lenses should be evaluated by a healthcare provider before treatment begins; this is to confirm the diagnosis of conjunctivitis and to be sure that another, more serious condition related to contact lens use (an infection of the cornea), is not present. People who wear contact lenses should avoid wearing the lenses during the first 24 hours of treatment, or until the eye is no longer red. The contact case should be thrown away and the contacts disinfected overnight or replaced (if disposable). Return to work/school -- The safest approach to avoid spreading viral and bacterial conjunctivitis to others is to stay home until there is no longer any discharge from the eye(s). However, this is not practical for most students and for those who work outside the home. Most daycare centers and schools require that students receive 24 hours of eye drops or ointment before returning to school. This treatment helps to prevent the spread of bacterial conjunctivitis, but is not necessary or helpful for children with viral conjunctivitis. Viral conjunctivitis is similar to a cold because it spreads easily between people. Younger children, who may not remember to wash their hands or avoid touching their eyes, should probably not attend school until the discharge has resolved. Older students or adults may choose to attend school/work, although they should limit close contact with others. In addition, adults who have contact with the very old, the very young, and people with a weakened immune system should limit contact with these susceptible individuals. Non-specific conjunctivitis treatment -- The conjunctiva heals quickly after it is injured, and non-specific conjunctivitis usually resolves within a few days without any treatment. However, the eye may feel better faster when it is treated with a lubricant, such as drops or ointments. These products are available without a prescription in most pharmacies. Preservative-free preparations are more expensive and are necessary only for people with a severe case of dry eye and those who are allergic to preservatives. Lubricant drops can be used as often as hourly with no side effects. The ointment provides longer lasting relief but blurs vision temporarily. For this reason, some people use ointment only at bedtime. It may be worthwhile to switch brands if one brand of drop or ointment is irritating, since each preparation contains different active and inactive ingredients and preservatives. Antibiotic or steroid eye drops/ointments are not recommended unless there is a specific reason they are needed (eg, a bacterial infection or inflammatory condition). Using these treatments when they are not needed can lead to serious complications. If the symptoms of conjunctivitis do not improve within two weeks, an examination with an machine printer may be recommended. CONJUNCTIVITIS PREVENTION Bacterial and viral conjunctivitis are both highly contagious and spread by direct contact with secretions or contact with contaminated objects. Simple hygiene measures can help minimize transmission to others. Adults or children with bacterial or viral conjunctivitis should not share handkerchiefs, tissues, towels, cosmetics, or bed sheets/pillows with uninfected family or friends. Hand washing is an essential and highly effective way to prevent the spread of infection. Hands should be wet with water and plain soap, and rubbed together for 15 to 30 seconds. It is not necessary to use antibacterial hand soap. Teach children to wash their hands before and after eating and after touching the eyes, coughing, or sneezing. Alcohol-based hand rubs are a good alternative for disinfecting hands if a sink is not available. Hand rubs should be spread over the entire surface of hands, fingers, and wrists until dry, and may be used several times. These rubs can be used repeatedly without skin irritation or loss of effectiveness. documented in this encounter [facility] 11-20-2023 History of Presen t illness Narrative Subjective Eye Problem Pertinent negatives include no abdominal pain, chest pain, coughing, fever, nausea, rash, sore throat or vomiting. Pt presents to clinic on November 20, 2023 for pink, itchy, swollen left eye since Saturday No ear pain, headaches or fever Blurry vision on left eye, clear drainage and crusting in the morning The inner canthus is watering and draining down the sinuses Pt has 10/10 shooting pain around the left sinuses and eye Not sure if she has congestion through the pain Eating and drinking okay Defecation and urination okay Meds tried: allergy nondrowsy meds, sinus and cold, eyedrops for allergy relief Eyedrops burned her eye but did not improve symptoms No cough Warm compresses not helping Review of Systems Constitutional: Negative for fever. HENT: Positive for sinus pain. Negative for ear pain and sore throat. Eyes: Positive for blurred vision, pain, discharge and redness. Negative for double vision. Respiratory: Negative for cough and shortness of breath. Cardiovascular: Negative for chest pain. Gastrointestinal: Negative for abdominal pain, constipation, diarrhea, nausea and vomiting. Genitourinary: Negative for dysuria. Skin: Positive for itching. Negative for rash. BP 102/76 Pulse 85 Temp 36.4 C (97.5 F) Resp 21 Wt 56.4 kg (124 lb 6.4 oz) LMP 09/01/2022 SpO2 99% BMI 23.51 kg/m PAST MEDICAL HISTORY Diagnosis Date Dysthymic disorder Depression (non-psychotic) PAST SURGICAL HISTORY Procedure Laterality Date PAST SURGICAL HISTORY OF stitches in forehead TUBAL LIGATION ALLERGIES Bupropion Hcl, Peanuts, Tree Nuts, and Wellbutrin [Bupropion] MEDICATIONS trimethoprim-polymyxin (POLYTRIM) 10,000 unit- 1 mg/mL ophthalmic solution Use 1 Drop in the left eye four times daily for 7 days. ibuprofen (MOTRIN) 600 mg tablet Take 1 tablet by mouth every 6 hours as needed for Pain. (Patient not taking: Reported on 11/20/2023) cetirizine (ZYRTEC) 10 mg tablet Take 1 tablet by mouth once daily. (Patient not taking: Reported on 11/20/2023) predniSONE (DELTASONE) 20 mg tablet 3 tabs po Q am x 4 days; 2 tabs po Q am x 4 days; 1 tab po Q am x 4 days (Patient not taking: Reported on 09/04/2022) hydrOXYzine HCl (ATARAX) 25 mg tablet Take 1 tablet by mouth daily at bedtime. (Patient not taking: Reported on 11/20/2023) hydrOXYzine pamoate (VISTARIL) 25 mg capsule Take 1 capsule by mouth three times daily as needed. (Patient not taking: Reported on 11/20/2023) FAMILY HISTORY Problem Relation Age of Onset Arthritis Maternal Grandmother Diabetes Maternal Grandmother Diabetes Paternal Grandmother Hypertension Paternal Grandmother Hypertension Paternal Grandfather Alcohol/Drug Paternal Grandfather Cancer Maternal Uncle LUNG CANCER Social History Tobacco Use Smoking status: Some Days Years: 5 Types: Cigarettes Last attempt to quit: 11/23/2010 Years since quittin.0 Smokeless tobacco: Never Substance Use Topics Alcohol use: Yes Comment: Occasionally Drug use: No Objective Physical Exam Constitutional: General: She is not in acute distress. Appearance: Normal appearance. She is normal weight. She is not ill-appearing, toxic-appearing or diaphoretic. HENT: Head: Normocephalic. Right Ear: Tympanic membrane, ear canal and external ear normal. There is no impacted cerumen. Left Ear: Tympanic membrane, ear canal and external ear normal. There is no impacted cerumen. Nose: Mucosal edema, congestion and rhinorrhea present. Mouth/Throat: Mouth: Mucous membranes are moist. Pharynx: No oropharyngeal exudate or posterior oropharyngeal erythema. Eyes: General: Right eye: No discharge. Left eye: Discharge (clear) present. Extraocular Movements: Extraocular movements intact. Left eye: Normal extraocular motion. Conjunctiva/sclera: Left eye: Left conjunctiva is injected. No chemosis, exudate or hemorrhage. Pupils: Pupils are equal, round, and reactive to light. Cardiovascular: Rate and Rhythm: Normal rate and regular rhythm. Heart sounds: Normal heart sounds. No murmur heard. No gallop. Pulmonary: Effort: Pulmonary effort is normal. No respiratory distress. Breath sounds: Normal breath sounds. No stridor. No wheezing, rhonchi or rales. Chest: Chest wall: No tenderness. Neurological: Mental Status: She is alert and oriented to person, place, and time. Psychiatric: Mood and Affect: Mood normal. Behavior: Behavior normal. Thought Content: Thought content normal. Judgment: Judgment normal. ASSESSMENT/PLAN: 1. Bacterial conjunctivitis - ICD9: 372.39, 041.9, ICD10: H10.9 - see medication orders - course and contagiousness issues discussed, including hand washing. - Instructed to call if high fever, development of periorbital redness or swelling, eye pain, visual changes, concerns or if symptoms persist. - Told pt to follow up with ophthalmology if not improving in 24 hours. - POLYMYXIN B SULFATE 10,000 UNIT-TRIMETHOPRIM 1 MG/ML EYE DROPS to left eye- 4 drops a day for 7 days SUSY Mehta TEACHING PROVIDER (Physician/PA/NEMATOLOGIST) NOTE OF PERSONAL INVOLVEMENT IN CARE: I have personally seen and examined the patient and performed the medical decision-making components. I have reviewed the Advanced Practice Registered Nurse (NEMATOLOGIST) Student's documentation and verified the findings in the note as written. Any additions or changes are noted in bold/italics. Signature: Sugey Peterson Date: 11/20/2023 Time: 1:58 PM documented in this encounter [facility] 09-04-2022 Instructions Blade Nguyen APRN.DOUG - 09/04/2022 5:02 PM EST SORE THROAT INSTRUCTIONS SORE THROAT OVERVIEW - Sore throat is a common problem during childhood, and is usually the result of a bacterial or viral infection. Although sore throat usually resolves without complications, it sometimes requires treatment with an antibiotic. There are some less common causes of sore throat that are serious or even life-threatening. This topic will discuss the most common causes and treatments of sore throat in children, as well as the warning signs of more serious conditions. SORE THROAT CAUSES - The most likely cause of a child's sore throat depends upon the child's age, the season, and the geographic area. While viruses are the most common cause of sore throat, bacteria are another common cause. Bacteria and viruses are spread from one person to another through hand contact. Hands get contaminated when the sick individual touches their nose or mouth and then touches another person directly (ubkz-kv-rtyc contact) or indirectly (ifyl-ku-rndfjg, such as doorknob, telephone, toys). It is difficult to determine the cause of sore throat based upon symptoms alone; an examination and laboratory test are recommended in most cases Viruses - There are many viruses that can cause pain and swelling of the throat. The most common include viruses that cause sore throat as part of an upper respiratory infection, such as the common cold. Other viruses that cause sore throat include influenza, adenovirus, and Reggie-Ernandez virus (the cause of mononucleosis). Symptoms - Symptoms that may occur with a viral infection can include a runny nose and congestion, irritation or redness of the eyes, cough, hoarseness, soreness in the roof of the mouth, a skin rash, or diarrhea. In addition, children with viral infections may have a fever and may feel miserable. A high fever does not necessarily mean that the child has a bacterial infection. Group A streptococcus - Group A streptococcus (GAS) is the name of the bacterium that causes strep throat. Although other bacteria can cause a sore throat, GAS is the most common bacterial cause; up to 30 percent of children with a sore throat will have GAS. Strep throat usually occurs during the winter and early spring, and is most common in school-age children and their younger siblings. Symptoms - Symptoms of strep throat in children older than 3 years often develop suddenly and include fever (temperature ?100.4 F or 38 C), headache, abdominal pain, nausea, and vomiting. Other symptoms can include swollen glands in the neck, white patches of pus in the back or sides of the throat, small red spots on the roof of the mouth, and swelling of the uvula. A cough and cold are not commonly seen in children with strep throat. Strep throat is uncommon in children younger than age 2 to 3 years. However, GAS infection can occur in younger children, and may cause a runny nose and congestion that is prolonged, low-grade fever (?101 F or 38.3 C), and tender glands in the neck. Infants younger than 1 year may be fussy and have a decreased appetite and low-grade fever. SORE THROAT TREATMENT - The treatment of sore throat depends upon the cause; strep throat is treated with an antibiotic while viral pharyngitis is treated with rest, pain relievers, and other measures to reduce symptoms. Strep throat - Strep throat is usually treated with an antibiotic, such as penicillin, or an antibiotic similar to penicillin (eg, amoxicillin). Children who are allergic to penicillin will be given an alternate antibiotic. The antibiotic is usually given in pill or liquid form two or three times per day. A one-time injection is also available, and may be recommended if a child is unwilling to take an oral medication. After completing 24 hours of antibiotics, the child is no longer contagious and may return to school. Symptoms usually improve within 1 to 2 days. However, it is important for the child to finish the entire course of treatment (usually 10 days). If a child does not begin to improve or worsens within 3 days, the child should be reevaluated. Throat pain can be treated with a non-prescription pain medication, if needed. (See 'Pain medications' below.) In addition, parents should monitor their child for dehydration, which can develop if the child is not willing to drink or eat due to a sore throat. (See 'Monitor for dehydration' below.) Viral throat pain - Sore throat caused by viral infections usually last 4 to 5 days. During this time, treatments to reduce pain may be helpful but will not help to eliminate the virus. Antibiotics do not improve throat pain caused by a virus and are not recommended. A child with a viral infection is usually allowed to return to school when there has been no fever for 24 hours and the child feels well enough to pay attention. Pain medications - Throat pain can be treated with a mild pain reliever such as acetaminophen (Tylenol ) or a non-steroidal anti-inflammatory agent such as ibuprofen (Motrin ). These medications should be dosed according to weight, not age. Aspirin is not recommended for children <18 years due to the risk of a potentially serious condition known as Darien syndrome. Monitor for dehydration - Some children with a sore throat are reluctant to drink or eat due to pain. Drinking less fluid can lead to dehydration. To reduce the risk of dehydration, parents can offer warm or cold liquids. (See 'Other interventions' below.) Signs and symptoms of mild dehydration include a slightly dry mouth, increased thirst, and decreased urine output (one wet diaper or void in six hours). Signs of moderate or severe dehydration include decreased urine output (less than one wet diaper or void in six hours), lack of tears when crying, dry mouth, and sunken eyes. A child who is moderately or severely dehydrated should be evaluated by a healthcare provider as soon as possible to determine if treatment is needed. Oral rinses- Salt-water gargles are an old stand-by for relief of throat pain. It is not clear if this treatment is effective, but it is unlikely to be harmful. Most recipes suggest 1/4 to 1/2 teaspoon of salt per cup (8 ounces) of warm water. The water should be gargled and then spit out (not swallowed). Children younger than six to eight years are not able to gargle properly. An oral rinse composed of equal parts of diphenhydramine (Benadryl liquid) and Maalox (magnesium hydroxide, aluminum hydroxide, and simethicone) may be helpful for pain caused by a sore mouth or ulcers in the mouth. Children older than six to eight years may swish and spit (not swallow) the mixture. Sprays - Sprays containing topical anesthetics are available to treat sore throat. However, such sprays are no more effective than sucking on hard candy. In addition, a common anesthetic ingredient, benzocaine, can cause allergic reactions. We do not recommend throat sprays for children. Lozenges - A variety of medicated throat lozenges are available to relieve dryness or pain. However, it is not clear that lozenges work any better than hard candy. We do not recommend throat lozenges for children, especially children younger than 3 to 4 years, who can choke. Sucking on hard candy may provide some relief for children older than 3 to 4 years, who are not at risk for choking. Other interventions - Other interventions include sipping warm beverages (eg, honey or lemon tea, chicken soup), cold beverages, or eating cold or frozen desserts (eg, ice cream, popsicles). These treatments are safe for children. Honey should not be given to children younger than 12 months due to the potential risk of botulism poisoning. Alternative therapies - Health food stores, vitamin outlets, and Internet Web sites offer alternative treatments for relief of sore throat pain. We do not recommend these treatments due to the risks of contamination with pesticides/herbicides, inaccurate labeling and dosing information, and a lack of studies showing that these treatments are safe and effective. SORE THROAT PREVENTION - Hand washing is an essential and highly effective way to prevent the spread of infection. Hands should be wet with water and plain soap, and rubbed together for 15 to 30 seconds. Special attention should be paid to the fingernails, between the fingers, and the wrists. Hands should be rinsed thoroughly, and dried with a single use towel. Alcohol-based hand rubs are a good alternative for disinfecting hands if a sink is not available. Hand rubs should be spread over the entire surface of hands, fingers, and wrists until dry, and may be used several times. These rubs can be used repeatedly without skin irritation or loss of effectiveness. Hand rubs are available as a liquid or wipe in small, portable sizes that are easy to carry in a pocket or handbag. When a sink is available, visibly soiled hands should be washed with soap and water. Hands should be washed after coughing, blowing the nose or sneezing. While it is not always possible to limit contact with a person who is sick, avoiding touching the eyes, nose, or mouth after direct contact can help to prevent the spread of infection. In addition, tissues should be used to cover the mouth when sneezing or coughing. These used tissues should be disposed of promptly. Sneezing/coughing into the sleeve of one's clothing (at the inner elbow) is another means of containing sprays of saliva and secretions and has the advantage of not contaminating the hands. WHEN TO SEEK HELP - Parents of a child with throat pain and one or more of the following should contact their healthcare provider immediately: Difficulty swallowing or breathing Excessive drooling in an infant or young child Temperature ?101 F or 38.3 C Swelling of the neck Child is unable or unwilling to drink or eat Voice sounds muffled Child has a stiff neck or difficulty opening the mouth WHERE TO GET MORE INFORMATION - Your child's healthcare provider is the best source of information for questions and concerns related to your child's medical problem. This article will be updated as needed every four months on our web site ([email or web address]). Information below was obtained from Up to date Last literature review version 19.2: February 2011 This topic last updated: May 31, 2010 documented in this encounter [facility] 09-04-2022 History of Presen t illness Narrative Subjective HPI HPI Denise Markhma is a 31 year old female who presents today for CC of sore throat. This started 1 day ago. Has tried otc medication for relief. Symptoms are worsened by nothing. Risk factors sick exposures at work. Denies possibility of being . smoker. .Patient presents with: Pain, Throat: Pain rated 10, x1 day, cold sore. PAST MEDICAL HISTORY Diagnosis Date Dysthymic disorder Depression (non-psychotic) PAST SURGICAL HISTORY Procedure Laterality Date PAST SURGICAL HISTORY OF stitches in forehead TUBAL LIGATION ALLERGIES Bupropion Hcl, Peanut Butter [Other], Peanuts, and Wellbutrin [Bupropion] MEDICATIONS ibuprofen (MOTRIN) 600 mg tablet Take 1 tablet by mouth every 6 hours as needed for Pain. cetirizine (ZYRTEC) 10 mg tablet Take 1 tablet by mouth once daily. hydrOXYzine HCl (ATARAX) 25 mg tablet Take 1 tablet by mouth daily at bedtime. hydrOXYzine pamoate (VISTARIL) 25 mg capsule Take 1 capsule by mouth three times daily as needed. predniSONE (DELTASONE) 20 mg tablet 3 tabs po Q am x 4 days; 2 tabs po Q am x 4 days; 1 tab po Q am x 4 days (Patient not taking: Reported on 09/04/2022) FAMILY HISTORY Problem Relation Age of Onset Arthritis Maternal Grandmother Diabetes Maternal Grandmother Diabetes Paternal Grandmother Hypertension Paternal Grandmother Hypertension Paternal Grandfather Alcohol/Drug Paternal Grandfather Cancer Maternal Uncle LUNG CANCER Social History Tobacco Use Smoking status: Some Days Years: 5.00 Types: Cigarettes Last attempt to quit: 11/23/2010 Years since quittin.7 Smokeless tobacco: Never Substance Use Topics Alcohol use: Yes Comment: Occasionally Drug use: No ROS Objective Blood pressure 114/74, pulse 87, temperature 37 C (98.6 F), resp. rate 18, weight 62.6 kg (138 lb), last menstrual period 09/01/2022. Physical Exam Constitutional: General: She is not in acute distress. Appearance: She is not toxic-appearing or diaphoretic. HENT: Head: Normocephalic and atraumatic. Right Ear: Hearing, tympanic membrane, ear canal and external ear normal. Left Ear: Hearing, tympanic membrane, ear canal and external ear normal. Nose: Nose normal. Mouth/Throat: Pharynx: Uvula midline. Posterior oropharyngeal erythema present. No pharyngeal swelling, oropharyngeal exudate or uvula swelling. Eyes: General: Lids are normal. No scleral icterus. Right eye: No discharge. Left eye: No discharge. Conjunctiva/sclera: Conjunctivae normal. Pupils: Pupils are equal, round, and reactive to light. Neck: Trachea: Trachea normal. Cardiovascular: Rate and Rhythm: Normal rate and regular rhythm. Heart sounds: Normal heart sounds. Pulmonary: Effort: Pulmonary effort is normal. Breath sounds: Normal breath sounds. Musculoskeletal: Cervical back: Normal range of motion and neck supple. Lymphadenopathy: Cervical: No cervical adenopathy. Right cervical: No superficial cervical adenopathy. Left cervical: No superficial cervical adenopathy. Skin: Findings: No rash. Neurological: Mental Status: She is alert and oriented to person, place, and time. ASSESSMENT/PLAN: 1. Sore throat - ICD9: 462, ICD10: J02.9 - suspect viral - Alere Strep Test neg, no culture pending - Discussed supportive care treatment with fluids, rest and analgesia. - The patient should follow up in 3-5 days if symptoms persist or worsen - STREP A MOLECULAR (POC) - PREDNISONE 20 MG TABLET Agrees to plan Blade Nguyen APRN.CNP documented in this encounter [facility] 11-25-2008 History of Past i llness Narrative Problem Noted Date Resolved Date Unspecified high-risk 11/25/2008 07/22/2009 documented as of this encounter (statuses as of 09/04/2022) [facility] History of Past illness Narrative* Problem Noted Date Diagnosed Date Resolved Date Unspecified high-risk 11/25/2008 07/22/2009 documented as of this encounter (statuses as of 11/21/2023) [facility] History of Past illness Narrative* Problem Noted Date Diagnosed Date Resolved Date Unspecified high-risk 11/25/2008 07/22/2009 documented as of this encounter (statuses as of 01/30/2024) [facility] note* Diagnosis Sore throat- Primary Acute pharyngitis documented in this encounter [facility] note* Diagnosis Bacterial conjunctivitis- Primary Other [facility]iv[facility] Diagnosis Acute pain of left shoulder- Primary Acute bursitis of left shoulder [facility] Diagnosis Mixed anxiety depressive disorder- Primary Dysthymic disorder Encounter to establish care with new doctor Other reasons for seeking consultation [facility] Diagnosis Allergic contact dermatitis due to plants, except food- Primary Contact dermatitis and other eczema due to plants (except food) documented in this encounter [facility] Summary Purpose Family History No Family History Records FoundNo Family History Records Found Advance Directives No Advanced Directives Records FoundNo Advanced Directives Records Found Additional Source Comments INFORMATION SOURCE (unrecogn ized section and content) DATE CREATED AUTHOR 05/06/2020 [facility] DATE CREATED AUTHOR AUTHOR'S ORGANIZ ATION 03/28/2025 [facility] Source Comments (unrecognize d section and content) In the event this informatio n is protected by the Federal Confidentiality of Alcohol and Drug Abuse Patient Records regulations: The Federal rules restrict any use of the information to criminally investigate or prosecute any alcohol or drug abuse patient.[facility] the event this information is protected by the Federal Confidentiality of Alcohol and Drug Abuse Patient Records regulations: The Federal rules restrict any use of the information to criminally investigate or prosecute any alcohol or drug abuse patient.[facility] the event this information is protected by the Federal Confidentiality of Alcohol and Drug Abuse Patient Records regulations: The Federal rules restrict any use of the information to criminally investigate or prosecute any alcohol or drug abuse patient.[facility] the event this information is protected by the Federal Confidentiality of Alcohol and Drug Abuse Patient Records regulations: The Federal rules restrict any use of the information to criminally investigate or prosecute any alcohol or drug abuse patient.[facility] the event this information is protected by the Federal Confidentiality of Alcohol and Drug Abuse Patient Records regulations: The Federal rules restrict any use of the information to criminally investigate or prosecute any alcohol or drug abuse patient.[facility] the event this information is protected by the Federal Confidentiality of Alcohol and Drug Abuse Patient Records regulations: The Federal rules restrict any use of the information to criminally investigate or prosecute any alcohol or drug abuse patient.[facility] Reason for Visit (unrecogniz ed section and content) Reason Comments Pain, Throat Pain rated 10, x1 da y, cold sore. Reason Comments Eye Problem Possible pink in lef t eye x 3 days Reason Comments Shoulder Injury Left shoulder pain x 1 day Specialty Diagnoses / Procedures Referred By Contac t Referred To Contact [facility] Diagnoses Left shoulder pain Procedures EST SAME DAY [facility] [address] [place] [address] Referral ID Status Reason Start Date Expiration Date Visits Requested Visits Authorized [id number] Pending Review Financial Clearance Required - Self Pay 01/30/2024 04/29/2024 1 1 Reason Comments Anxiety Establish Care Reason Comments Rash FOR RECORDS PERTAINING TO PATIENTS WHO ARE OR HAVE BEEN ENROLLED IN A CHEMICAL DEPENDENCY/SUBSTANCEABUSE PROGRAM, SOME INFORMATION MAY BE OMITTED. This clinical summary was aggregated from multiple sources. Caution should be exercised in using it in the provision of clinical care. This summary normalizes information from multiple sources, and as a consequence, information in this document may materially change the coding, format and clinical context of patient data. In addition, data may be omitted in some cases. CLINICAL DECISIONS SHOULD BE BASED ON THE PRIMARY CLINICAL RECORDS. [facility]. provides no warranty or guarantee of the accuracy or completeness of information in this document.
[2025-05-01 21:24] VITALS: BP 120/81; PULSE 92; RESP 21; TEMP 36.9; O2SAT 99
--- NOTE | 2025-05-01 21:27 | EX.ED.DYSGE1 ---
HPI <Dr. Elder Garcia DO - Last Filed: 05/02/25 07:35> History of Present Illness Chief Complaint: General Illness Informant: patient and spouse/S.O. Narrative Narrative: Presents for evaluation increasing chest pain worse with deep breath and cough. Had upper respiratory cough a week ago seen in urgent care on Saturday. States had a dry cough diagnosed with left lower lobe pneumonia by x-ray per patient. She is put on 2 antibiotics 1 was Zithromax second antibiotic was 2 tabs twice a day. She cannot recall his name. Since then have not hot and cold symptoms increasing chest pain worse with deep breaths. Tobacco history. Denies asthma or COPD. No recent travel surgery or immobilizations. No history of PE or DVT. Denies HyperTET diabetes hyperlipidemia. Denies any family history of MIs at a young age. Using Tylenol and Motrin. PFSH <Dr. Elder Garcia DO - Last Filed: 05/02/25 07:35> [facility] Home Medications ?Medication ?Instructions ?Recorded ?Last Taken ?Type fluoxetine 10 mg capsule 10 mg PO DAILY 05/01/25 Unknown History hydroxyzine pamoate 25 mg capsule 25 mg PO TID PRN PRN anxiety 05/01/25 Unknown History Allergy/AdvReac Type Severity Reaction Status Date / Time bupropion HCl (From Allergy Hives Verified 05/01/25 20:22 Wellbutrin) Social History Smoking Status: Current every day smoker tobacco type: cigarettes ROS <Dr. Elder Garcia DO - Last Filed: 05/02/25 07:35> ROS ED Constitutional Constitutional ED: Denies chills, fever(s) or sweats ENT ENT ED: Denies sore throat Cardiovascular Cardiovascular: Reports chest pain; Denies leg edema, palpitations or racing heartbeat Respiratory/Chest Respiratory/Chest: Reports cough and dyspnea; Denies dyspnea on exertion Gastrointestinal Gastrointestinal: Denies abdominal pain, diarrhea, nausea or vomiting Genitourinary Genitourinary ED: Denies dysuria, hematuria or urinary frequency Musculoskeletal Musculoskeletal: Denies back pain, extremity pain or neck pain Integumentary Denies rash or wounds Neurologic Neurologic: Denies headache(s), paresthesias or weakness EXAM <Dr. Elder Le, DO - Last Filed: 05/02/25 07:35> Physical Exam Const Vital Signs: 05/01/25 20:22 05/01/25 20:24 05/01/25 20:24 Temperature 99.5 F H 99.5 F H Temperature Source Oral Oral Pulse Rate 105 H 105 H Respiratory Rate 20 H 22 H Respiratory Effort Normal Respiratory Pattern Tachypnea Blood Pressure 119/85 H 119/85 H Blood Pressure Mean 96 96 Pulse Ox 98 98 Oxygen Delivery Method Room Air 05/01/25 21:24 05/01/25 22:00 05/01/25 23:00 Temperature 98.4 F 99.1 F 98.9 F Temperature Source Oral Oral Oral Pulse Rate 92 88 90 Respiratory Rate 21 H 16 20 H Respiratory Effort Respiratory Pattern Blood Pressure 120/81 H 115/80 109/70 Blood Pressure Mean 94 91 83 Pulse Ox 99 99 98 Oxygen Delivery Method Room Air Room Air Room Air 05/01/25 23:57 Temperature 98.8 F Temperature Source Pulse Rate 89 Respiratory Rate 20 H Respiratory Effort Respiratory Pattern Blood Pressure 117/57 L Blood Pressure Mean 77 Pulse Ox 100 Oxygen Delivery Method Positive well nourished and well developed General Appearance ED: well developed and NAD HEENT Reports moist mucous membranes normocephalic and atraumatic Eyes General Eye ED: Yes normal appearance of both eyes Neck full ROM Chest Wall Chest: Negative for tenderness Resp normal respiratory effort and normal air movement Effort and Inspection: symmetric chest movement; Negative for respiratory distress Cardio regular rhythm and no murmurs Rate: tachycardic Peripheral Pulses: pulses 2+ throughout GI normal to inspection, nondistended, normoactive bowel sounds and non-tender Palpation: Negative for guarding or rebound tenderness present Extremity normal to inspection General Extremety ED: Negative for edema or tenderness General Extremity: Negative for edema Neuro oriented x3 and no sensory deficits noted Sensorium / Orientation: awake and alert Skin no rashes or lesions noted and no wounds <Dr. Sy Talamantes MD - Last Filed: 05/01/25 23:40> Physical Exam Const Vital Signs: 05/01/25 20:22 05/01/25 20:24 05/01/25 20:24 Temperature 99.5 F H 99.5 F H Temperature Source Oral Oral Pulse Rate 105 H 105 H Respiratory Rate 20 H 22 H Respiratory Effort Normal Respiratory Pattern Tachypnea Blood Pressure 119/85 H 119/85 H Blood Pressure Mean 96 96 Pulse Ox 98 98 Oxygen Delivery Method Room Air 05/01/25 21:24 05/01/25 22:00 05/01/25 23:00 Temperature 98.4 F 99.1 F 98.9 F Temperature Source Oral Oral Oral Pulse Rate 92 88 90 Respiratory Rate 21 H 16 20 H Respiratory Effort Respiratory Pattern Blood Pressure 120/81 H 115/80 109/70 Blood Pressure Mean 94 91 83 Pulse Ox 99 99 98 Oxygen Delivery Method Room Air Room Air Room Air 05/01/25 23:57 Temperature 98.8 F Temperature Source Pulse Rate 89 Respiratory Rate 20 H Respiratory Effort Respiratory Pattern Blood Pressure 117/57 L Blood Pressure Mean 77 Pulse Ox 100 Oxygen Delivery Method MDM <Dr. Elder Garcia, DO - Last Filed: 05/02/25 07:35> MDM MDM Narrative Medical decision making narrative: Interventions / MDM: Differential diagnosis: Upper respiratory infection, recent pneumonia, Pleurisy Diagnosis considered but do not suspect: PE however D-dimer negative. Pericarditis/myocarditis however troponin negative no EKG changes for concerns. My EKG interpretation: Sinus rhythm [address] changes. QTc 427 Imaging independently reviewed and interpreted by myself: 2 view chest x-ray:No acute process also read by radiology. External documents reviewed: N/A Test considered but not ordered:N/A ED course: Patient describes increased pleuritic symptoms with increasing cough. Was afebrile pulse ox 90 on room air slight tachycardia. Will check EKG cardiac enzyme will obtain D-dimer for low risk Wells criteria for PE. 2225: Troponin negative D-dimer negative white count normal electrolytes normal. Will obtain two-view chest x-ray for further evaluation with symptoms. Patient clinically feeling much better on reevaluation. Re-evaluation: stable Disposition discussed with patient/family/significant other: Patient and significant other Case discussed with consulting clinician: N/A This note was generated with [employer]qua dictation software. It may contain incorrect words, spelling, and punctuation that were not noted in checking the note before signing. Lab Data Attestation: I reviewed the patient's lab results. Labs: Laboratory Results - last 24 hr 05/01/25 21:20 WBC 10.0 RBC 4.22 Hgb 11.6 L Hct 33.5 L MCV 79.4 L MCH 27.5 MCHC 34.6 RDW Std Deviation 36.2 RDW Coeff of Layne 12.7 Plt Count 280 MPV 9.8 Immature Gran % (Auto) 0.500 Neut % (Auto) 63.7 Lymph % (Auto) 20.2 Camp % (Auto) 11.9 H Eos % (Auto) 3.1 Baso % (Auto) 0.6 Absolute Neuts (auto) 6.4 Absolute Lymphs (auto) 2.03 Nucleated RBC % 0 D-Dimer Quant (PE/DVT) 0.27 Sodium 137 Potassium 3.5 Chloride 104 Carbon Dioxide 21.5 Anion Gap 11 BUN 9 Creatinine 0.70 Estim Creat Clear Calc 97.22 Est GFR (MDRD) Non-Af 116 BUN/Creatinine Ratio 12.8 Glucose 98 Calcium 9.1 Troponin T High Sens < 6 Serum , Qual NEGATIVE Radiography Diagnostic Testing: Clinical Impression(s) from Imaging Studies Chest X-Ray 05/01/25 22:26 IMPRESSION: 1. No acute cardiopulmonary abnormality. 2. Globular calcification at the left acromiohumeral interval, which may be the result of calcific tendinopathy of the rotator cuff. Reading Location: [id number] <Dr. Sy Talamatnes MD - Last Filed: 05/01/25 23:40> [facility] Lab Data Labs: Laboratory Results - last 24 hr 05/01/25 21:20 WBC 10.0 RBC 4.22 Hgb 11.6 L Hct 33.5 L MCV 79.4 L MCH 27.5 MCHC 34.6 RDW Std Deviation 36.2 RDW Coeff of Layne 12.7 Plt Count 280 MPV 9.8 Immature Gran % (Auto) 0.500 Neut % (Auto) 63.7 Lymph % (Auto) 20.2 Camp % (Auto) 11.9 H Eos % (Auto) 3.1 Baso % (Auto) 0.6 Absolute Neuts (auto) 6.4 Absolute Lymphs (auto) 2.03 Nucleated RBC % 0 D-Dimer Quant (PE/DVT) 0.27 Sodium 137 Potassium 3.5 Chloride 104 Carbon Dioxide 21.5 Anion Gap 11 BUN 9 Creatinine 0.70 Estim Creat Clear Calc 97.22 Est GFR (MDRD) Non-Af 116 BUN/Creatinine Ratio 12.8 Glucose 98 Calcium 9.1 Troponin T High Sens < 6 Serum , Qual NEGATIVE Radiography Diagnostic Testing: Clinical Impression(s) from Imaging Studies Chest X-Ray 05/01/25 22:26 IMPRESSION: 1. No acute cardiopulmonary abnormality. 2. Globular calcification at the left acromiohumeral interval, which may be the result of calcific tendinopathy of the rotator cuff. Reading Location: [id number] Treatment and Re-Evaluation Comments:: Patient checked out to me at shift change. Chest x-ray 2 views of my interpretation are normal, radiology is in agreement, showing no residual infiltrate or effusion. This may be pleurisy related to her infection. Pulse ox is 99% on room air she is not tachycardic the rest of her vital signs are normal. She is discharged according to Dr. Garcia's instructions, including continuing ibuprofen and following up if not improving which patient is comfortable with. Discharge Plan Triage Chief Complaint: General Illness ED Provider: Elder Garcia Dx/Rx/DC Orders Clinical Impression: Chest pain, pleuritic, Bronchitis Instructions: ED Pleurisy Prescriptions: No Action hydroxyzine pamoate 25 mg capsule 25 mg PO TID PRN PRN (Reason: anxiety) fluoxetine 10 mg capsule 10 mg PO DAILY Primary Care Provider: Care Physician,No Primary Referrals: Care Physician,No Primary [Primary Care Provider] - Aria Kwon DO Svetlana [[facility] [place]] - 1-2 Weeks Activity Restrictions/Additional Instructions: Your cardiac workup negative your D-dimer negative. Finish your antibiotics as prescribed you are being treated for pneumonia. You have pleuritic symptoms. Continue Tylenol and ibuprofen. May take up to 2 weeks to her symptoms start to improve. Print Language: Czech Disposition Disposition: Home, Self Care Discharge Date/Time: 05/01/25 23:55
[2025-05-01 21:28] LABS: Hematocrit 33.5 % (37-47); Hemoglobin 11.6 g/dL (12.0-15.0); Immature Granulocytes Count 0.050 X10^3/uL (0.0-0.0); Mean Corp Hgb Conc 34.6 g/dL (32-36); Mean Corpuscular Volume 79.4 fL (81-99); Mean Platelet Vol. 9.8 fl (6.2-12.0); NRBC Flagged by Analyzer 0 % (0-5); Platelet Count 280 K/mm3 (150-450); RBC Distribution Width CV 12.7 % (11.6-14.6); RBC Distribution Width SD 36.2 fl (35.1-43.9); Red Blood Count 4.22 M/mm3 (4.2-5.4); White Blood Count 10.0 K/mm3 (4.4-11.0)
[2025-05-01 21:37] LABS: Internal QC Validated? YES +Cl - CLEAR BKGD; Pregnancy, Serum, hCG Quali. NEGATIVE Negative; Record Kit Lot#, Serum Preg. 0000962302
[2025-05-01 22:00] VITALS: BP 115/80; PULSE 88; RESP 16; TEMP 37.3; O2SAT 99
[2025-05-01 22:06] LABS: Anion Gap 11 (5-15); BUN 9 mg/dL (4-19); BUN/Creat Ratio 12.8 RATIO (10-20); Calcium,Total 9.1 mg/dL (7.6-11.0); Carbon Dioxide 21.5 mmol/L (21.0-32.0); Chloride 104 mmol/L (98-108); Estimated Creatinine Clearance 97.22 ml/min (50-250); Glucose 98 mg/dL (70-99); Potassium 3.5 mmol/L (3.3-5.1); Troponin T High Sensitivity < 6 ng/L (<=14)
[2025-05-01 22:19] LABS: D-Dimer Quantitative (DVT/PE) 0.27 FEU/ug/m (0.27-0.49)
--- NOTE | 2025-05-01 22:26 | RAD_ITS ---
PROCEDURE: CHEST PA AND LATERAL 05/01/2025 REASON FOR EXAM: COUGH, CHEST PAIN TECHNIQUE: CHEST PA AND LATERAL COMPARISON: None FINDINGS: Heart: The heart size is normal. Mediastinum: The mediastinal contour is unremarkable. Lungs: No focal consolidation, pleural effusion, or pneumothorax. Bones: Globular calcification at the left acromiohumeral interval. RAD/Chest PA and Lateral IMPRESSION: 1. No acute cardiopulmonary abnormality. 2. Globular calcification at the left acromiohumeral interval, which may be th e result of calcific tendinopathy of the rotator cuff. Reading Location: [id number]
[2025-05-01 23:00] VITALS: BP 109/70; PULSE 90; RESP 20; TEMP 37.2; O2SAT 98
[2025-05-01 23:57] VITALS: BP 117/57; PULSE 89; RESP 20; TEMP 37.1; O2SAT 100
== END 2025-05-01 23:55 | disposition home or self-care (01) ==
PROVIDERS: Emergency Provider Emergency Medicine; Visit Provider Emergency Medicine
DX: R07.89 Other chest pain (principal); J40 Bronchitis, not specified as acute or chronic; F17.210 Nicotine dependence, cigarettes, uncomplicated
CPT/HCPCS: 71046; 80048; 84484; 84703; 85025; 85379; 93005; 96374; 99284; A4216